=== PATIENT | male | born 1955 | race Caucasian/White ===

== ENCOUNTER → 2023-11-17 17:06 | Outpatient (REF) | payer OTHER, SELFPAY | LOC: HWRAD 17:06 | PROVIDERS: ATTENDING PHYSICIAN Family Medicine | DX: M54.50 Low back pain, unspecified (principal) | CPT/HCPCS: 72110 ==

== ENCOUNTER → 2023-12-24 13:12 | Outpatient (REF) | payer OTHER, SELFPAY | LOC: HWRAD 13:12 | PROVIDERS: ATTENDING PHYSICIAN Family Medicine | DX: R10.2 Pelvic and perineal pain (principal); N50.82 Scrotal pain | CPT/HCPCS: 76770; 76870; 93976 ==

== ENCOUNTER → 2024-02-02 13:47 | Outpatient (REF) | payer OTHER, SELFPAY | LOC: HWRAD 13:47 | PROVIDERS: ATTENDING PHYSICIAN Urology; FAMILY PHYSICIAN Family Medicine | DX: R31.29 Other microscopic hematuria (principal) | CPT/HCPCS: 74178; Q9967 ==

== ENCOUNTER → 2024-10-03 12:46 | Outpatient (REF) | payer OTHER, SELFPAY | LOC: MRI 3T 12:46 | PROVIDERS: ATTENDING PHYSICIAN Urology; FAMILY PHYSICIAN Family Medicine | DX: R97.20 Elevated prostate specific antigen [PSA] (principal) | CPT/HCPCS: 72197; A9575 ==